=== PATIENT | male | born 1990 | race Caucasian/White ===

== ENCOUNTER 2019-02-16 13:03 | Emergency (ER) | payer BC ==
[~2019-02-16] VITALS: Ht 180.3 cm; Wt 104.3 kg
[2019-02-16] MEDS ORDERED: KETOROLAC 30 MG/ML VIAL IM ONE (14:00)
--- NOTE | 2019-02-16 14:34 | ED General ---
General Chief Complaint: Chest Wall Stated Complaint: CHEST PAIN Nursing Triage Note: PT AMBULATED TO ROOM 2 PT STATES STARTED LAST PM AROUND 1800, PT STATES HURTS LOWER L CHEST AND TO SIDE OF CHEST RATES 3/10. DENIES SOA OR NAUSEA Nursing Sepsis Screen: No Definite Risk History of Present Illness Date Seen by Provider: Feb 16, 2019 Time Seen by Provider: 13:10 Initial Comments 28-year-old male presents for left-sided rib pain. He is a [employer] and usual sits for approximately 4-6 hours without changing positions. He denies chest pain and reports that he can palpate the area of tenderness along the left lateral ribs. He thinks it started after sitting for prolonged period of time yesterday. He denies any shortness of breath. No history of injuries to the ribs. He has not taken any medicine for the symptoms. Timing/Duration: 24 Hours Severity: Mild Associated Systoms: Denies Symptoms Allergies and Home Medications Allergies Coded Allergies: No Known Drug Allergies (Unverified , 10/11/11) Home Medications No Active Prescriptions or Reported Meds Patient Home Medication List Home Medication List Reviewed: Yes Review of Systems Review of Systems Constitutional: no symptoms reported, see HPI Respiratory: see HPI, other (left lateral rib pain) All Other Systems Reviewed Negative Unless Noted: Yes Past Htjxvwi-Gymplm-Gytzua Hx Past Med/Social Hx: Reviewed Nursing Past Med/Soc Hx Patient Social History Alcohol Use: Rarely Uses Recreational Drug Use: No Smoking Status: Former Smoker Type Used: Cigarettes Recent Foreign Travel: No Contact w/Someone Who Travel: No Recent Infectious Disease Expo: No Recent Hopitalizations: No Immunizations Up To Date Tetanus Booster (TDap): Less than 5yrs Past Medical History Surgeries: No Respiratory: Yes (tobaccoism) Cardiac: No Neurological: No Reproductive Disorders: No Sexually Transmitted Disease: No HIV/AIDS: No Gastrointestinal: No Musculoskeletal: No Endocrine: No Cancer: No Psychosocial: No Integumentary: No Blood Disorders: No Adverse Reaction/Blood Tranf: No Family Medical History No Pertinent Family Hx Physical Exam Vital Signs Vital Signs - First Documented 02/16/19 13:07 Temp 98.4 Pulse 85 Resp 18 B/P (MAP) 137/88 (104) Pulse Ox 96 Capillary Refill : NONE Height, Weight, BMI Height: 5'11.00" Weight: 230lbs. oz. 104.030411yv; BMI Method:Stated General Appearance: No Apparent Distress, WD/WN Eyes: Bilateral Eye Normal Inspection, Bilateral Eye PERRL, Bilateral Eye EOMI HEENT: PERRL/EOMI, TMs Normal, Normal ENT Inspection, Pharynx Normal Neck: Full Range of Motion, Normal Inspection, Non Tender, Supple Respiratory: Lungs Clear, Normal Breath Sounds, Other (tenderness palpation along the left lower ribs) Cardiovascular: Regular Rate, Rhythm, No Murmur, Normal Peripheral Pulses Gastrointestinal: Normal Bowel Sounds, Non Tender, Soft Neurologic/Psychiatric: Alert, Oriented x3, No Motor/Sensory Deficits, Normal Mood/Affect Progress/Results/Core Measures Suspected Sepsis Recent Fever Within 48 Hours: No Infection Criteria Present: None New/Unexplained Altered Menta: No Sepsis Screen: No Definite Risk SIRS Temperature:98.4 Pulse: 85 Respiratory Rate: 18 Blood Pressure 137 /88 Mean: 104 Results/Orders My Orders Orders - ESAU BENITEZ Ekg Tracing (02/16/19 13:24) Ketorolac Injection (Toradol Injection) (02/16/19 14:00) Medications Given in ED Current Medications Medications Dose Ordered Sig/Jaja Route Start Time Stop Time Status Last Admin Dose Admin Ketorolac Tromethamine 60 mg ONCE ONCE IM 02/16/19 14:00 02/16/19 14:01 DC 02/16/19 13:57 60 MG Vital Signs/I&O 02/16/19 02/16/19 13:07 14:43 Temp 98.4 Pulse 85 83 Resp 18 18 B/P (MAP) 137/88 (104) 129/88 (102) Pulse Ox 96 98 Capillary Refill : NONE Blood Pressure Mean: 104 Progress Note : Time: 13:10 Progress Note Patient seen and evaluated. We'll obtain EKG and give Toradol 60 mg IM. 1400 patient reports improvement in his symptoms. Discharge instructions and return precautions reviewed. ECG Initial ECG Impression Date: Feb 16, 2019 Initial ECG Impression Time: 13:40 Initial ECG Rate: 65 Initial ECG Rhythm: Normal Sinus Initial ECG Intervals: Normal Initial ECG Intervals NC 156, QRSD 84, QT 356, QTC 371. [place] P 33, QRS 59, T 29. Initial ECG Impression: Normal Initial ECG Comparisson: No Previous ECG Available Comment Reviewed with Dr. Ridley, agreed with interpretation. Departure Impression Primary Impression: Costochondritis, acute Disposition: 01 HOME, SELF-CARE Condition: Improved Departure-Patient Inst. Decision time for Depature: 14:20 Referrals: NO,LOCAL PHYSICIAN (PCP/Family) Primary Care Physician Patient Instructions: Costochondritis (DC) Add. Discharge Instructions: Alternate heat and ice to ribs when painful. Take ibuprofen 600 mg every 8 hours. Establish care with a primary care provider. Stand up and stretch or change position when surinder, at least hourly. Return to emergency department for new, urgent health care needs. All discharge instructions reviewed with patient and/or family. Voiced understanding. Scripts No Active Prescriptions or Reported Meds Work/School Note: Local Medical Staff Listing ESAU BENITEZ Feb 16, 2019 14:34
[2019-02-16 14:43] VITALS: BP 129/88
== END 2019-02-16 14:43 | disposition home or self-care (01) ==
LOC: EDUNIT# 13:03 → ER 13:05
DX: M94.0 Chondrocostal junction syndrome [Tietze] (principal); Z87.891 Personal history of nicotine dependence
CPT/HCPCS: 93005; 96372

== ENCOUNTER 2019-04-10 16:53 | Emergency (ER) | payer BC ==
[~2019-04-10] VITALS: Ht 180 cm; Wt 100.0 kg
[2019-04-10] MEDS ORDERED: KETOROLAC 30 MG/ML VIAL IVP STA (17:04)
[2019-04-10 17:10] LABS: BASOPHILS % (AUTO) 0 % (0-10); EOSINOPHILS # (AUTO) 0.1 10^3/uL (0.0-0.3); EOSINOPHILS % (AUTO) 1 % (0-10); HEMATOCRIT 44 % (40-54); HEMOGLOBIN 14.8 G/DL (13.3-17.7); LYMPHOCYTES # (AUTO) 4.6 X 10^3 (1.0-4.0); LYMPHOCYTES % (AUTO) 47 % (12-44); MEAN CORPUSCULAR HEMOGLOBIN 28 PG (25-34); MEAN CORPUSCULAR HGB CONC 34 G/DL (32-36); MEAN CORPUSCULAR VOLUME 84 FL (80-99); MEAN PLATELET VOLUME 12.8 FL (7.4-10.4); MONOCYTES # (AUTO) 0.8 X 10^3 (0.0-1.0); MONOCYTES % (AUTO) 9 % (0-12); NEUTROPHILS # (AUTO) 4.2 X 10^3 (1.8-7.8); NEUTROPHILS % (AUTO) 43 % (42-75); PLATELET COUNT 190 10^3/uL (130-400); RED CELL DISTRIBUTION WIDTH 12.2 % (10.0-14.5); WHITE BLOOD COUNT 9.7 10^3/uL (4.3-11.0)
[2019-04-10] MEDS ORDERED: KETAMINE/NaCl 50 MG/5 ML SYRINGE (ED ONLY) IV ONE (17:15)
[2019-04-10 17:21] LABS: ALANINE AMINOTRANSFERASE 90 U/L (0-55); ALBUMIN 4.7 GM/DL (3.2-4.5); ALKALINE PHOSPHATASE 101 U/L (40-136); BILIRUBIN,TOTAL 0.8 MG/DL (0.1-1.0); BUN/CREATININE RATIO 14; CALCIUM 9.3 MG/DL (8.5-10.1); CARBON DIOXIDE 22 MMOL/L (21-32); CHLORIDE 104 MMOL/L (98-107); CREATININE SERUM 1.13 MG/DL (0.60-1.30); GFR ESTIMATED > 60; GLUCOSE 124 MG/DL (70-105); POTASSIUM 3.8 MMOL/L (3.6-5.0); SODIUM 141 MMOL/L (135-145); TOTAL PROTEIN 7.3 GM/DL (6.4-8.2)
[2019-04-10 17:30] LABS: BILIRUBIN,URINE NEGATIVE (NEGATIVE); CLARITY,URINE CLEAR; COLOR,URINE YELLOW; GLUCOSE, URINE (UA) NEGATIVE (NEGATIVE); KETONES,URINE 2+ (NEGATIVE); LEUKOCYTE ESTERASE ,URINE NEGATIVE (NEGATIVE); NITRITE,URINE NEGATIVE (NEGATIVE); PH,URINE 5 (5-9); PROTEIN,URINE NEGATIVE (NEGATIVE)
--- NOTE | 2019-04-10 17:34 | ED GI ---
General Chief Complaint: Abdominal/GI Problems Stated Complaint: ABD PAIN Nursing Triage Note: PT ARRIVED PER EMS PT CO OF R FLANK ABD PAIN STARTED AT 1610. PT HAS HAD FENTYL TOTAL OF 100MCG. BY EMS NS INFUSING PER IV IN L AC #20 BY EMS Sepsis Screen: No Definite Risk Source of Information: Patient Exam Limitations: No Limitations (BLADIMIR JERONIMO MD) History of Present Illness Date Seen by Provider: Apr 10, 2019 Time Seen by Provider: 17:00 Initial Comments Here with report of acute onset of right flank pain that started at about 1610. He was laying in bed at the time and it suddenly started. Never had anything like this before. EMS was called. They did give fentanyl 100 g IV and that did not really help. Reports the pain is cramping and persistent. Denies fevers, chills, vomiting or diarrhea. Timing/Duration: 1 Hour Severity/Quality: Moderate, Severe Location: Flank (right) Radiation: No Radiation Activities at Onset: None Modifying Factors: Improves With Analgesics Associated Symptoms: Back Pain; No Chest Pain, No Fever/Chills, No Nausea/Vomiting, No Shortness of Air, No Swelling/Mass in Abdomen, No Weakness (BLADIMIR JERONIMO MD) Allergies and Home Medications Allergies Coded Allergies: No Known Drug Allergies (Unverified , 10/11/11) Home Medications No Active Prescriptions or Reported Meds Patient Home Medication List Home Medication List Reviewed: Yes (BLADIMIR JERONIMO MD) Review of Systems Review of Systems Constitutional: see HPI; No chills, No fever EENTM: No Symptoms Reported Respiratory: Other (worse with deep breathing) Cardiovascular: No Symptoms Reported Gastrointestinal: See HPI, Abdominal Pain; Denies Diarrhea, Denies Nausea, Denies Vomiting Genitourinary: See HPI, Flank Pain; Denies Hematuria Musculoskeletal: no symptoms reported Skin: no symptoms reported (BLADIMIR JERONIMO MD) All Other Systems Reviewed Negative Unless Noted: Yes (BLADIMIR JERONIMO MD) Past Fiqbxvh-Czdgbu-Eigant Hx Past Med/Social Hx: Reviewed Nursing Past Med/Soc Hx (BLADIMIR JERONIMO MD) Patient Social History Alcohol Use: Rarely Uses Recreational Drug Use: No Smoking Status: Current Everyday Smoker Type Used: Cigars Recent Foreign Travel: No Contact w/Someone Who Travel: No Recent Infectious Disease Expo: No Recent Hopitalizations: No (BLADIMIR JERONIMO MD) Immunizations Up To Date Tetanus Booster (TDap): Less than 5yrs (BLADIMIR JERONIMO MD) Past Medical History Surgeries: No Respiratory: Yes (tobaccoism) Cardiac: No Neurological: No Reproductive Disorders: No Sexually Transmitted Disease: No HIV/AIDS: No Genitourinary: No Gastrointestinal: No Musculoskeletal: No Endocrine: Yes Diabetes, Non-Insulin dep HEENT: No Cancer: No Psychosocial: No Integumentary: No Blood Disorders: No Adverse Reaction/Blood Tranf: No (BLADIMIR JERONIMO MD) Family Medical History Reviewed Nursing Family Hx (BLADIMIR JERONIMO MD) No Pertinent Family Hx (BLADIMIR JERONIMO MD) Physical Exam Vital Signs Vital Signs - First Documented 04/10/19 16:55 Temp 36.7 Pulse 81 Resp 18 B/P (MAP) 153/95 (114) Pulse Ox 100 (CHETAN,OLGA Landon) Vital Signs Capillary Refill : Less Than 3 Seconds (BLADIMIR JERONIMO MD) Height/Weight/BMI Height: 5'11.00" Weight: 230lbs. oz. 104.133393im; 30.00 BMI Method:Stated General Appearance: WD/WN, no apparent distress HEENT: PERRL/EOMI, pharynx normal Neck: full range of motion, supple Respiratory: lungs clear, normal breath sounds Cardiovascular: regular rate, rhythm, no murmur Gastrointestinal: soft, tenderness (right flank) Extremities: non-tender, normal inspection Back: CVA tenderness (R); No CVA tenderness (L) Neurologic/Psychiatric: alert, oriented x 3 Skin: normal color, warm/dry (BLADIMIR JERONIMO MD) Progress/Results/Core Measures Results/Orders Lab Results Laboratory Tests Test 04/10/19 16:55 04/10/19 17:26 Range/Units White Blood Count 9.7 4.3-11.0 10^3/uL Red Blood Count 5.23 4.35-5.85 10^6/uL Hemoglobin 14.8 13.3-17.7 G/DL Hematocrit 44 40-54 % Mean Corpuscular Volume 84 80-99 FL Mean Corpuscular Hemoglobin 28 25-34 PG Mean Corpuscular Hemoglobin Concent 34 32-36 G/DL Red Cell Distribution Width 12.2 10.0-14.5 % Platelet Count 190 130-400 10^3/uL Mean Platelet Volume 12.8 H 7.4-10.4 FL Neutrophils (%) (Auto) 43 42-75 % Lymphocytes (%) (Auto) 47 H 12-44 % Monocytes (%) (Auto) 9 0-12 % Eosinophils (%) (Auto) 1 0-10 % Basophils (%) (Auto) 0 0-10 % Neutrophils # (Auto) 4.2 1.8-7.8 X 10^3 Lymphocytes # (Auto) 4.6 H 1.0-4.0 X 10^3 Monocytes # (Auto) 0.8 0.0-1.0 X 10^3 Eosinophils # (Auto) 0.1 0.0-0.3 10^3/uL Basophils # (Auto) 0.0 0.0-0.1 10^3/uL Sodium Level 141 135-145 MMOL/L Potassium Level 3.8 3.6-5.0 MMOL/L Chloride Level 104 98-107 MMOL/L Carbon Dioxide Level 22 21-32 MMOL/L Anion Gap 15 H 5-14 MMOL/L Blood Urea Nitrogen 16 7-18 MG/DL Creatinine 1.13 0.60-1.30 MG/DL Estimat Glomerular Filtration Rate > 60 BUN/Creatinine Ratio 14 Glucose Level 124 H 70-105 MG/DL Calcium Level 9.3 8.5-10.1 MG/DL Corrected Calcium 8.5-10.1 MG/DL Total Bilirubin 0.8 0.1-1.0 MG/DL Aspartate Amino Transf (AST/SGOT) 39 H 5-34 U/L Alanine Aminotransferase (ALT/SGPT) 90 H 0-55 U/L Alkaline Phosphatase 101 40-136 U/L Total Protein 7.3 6.4-8.2 GM/DL Albumin 4.7 H 3.2-4.5 GM/DL Urine Color YELLOW Urine Clarity CLEAR Urine pH 5 5-9 Urine Specific [place] 1.025 H 1.016-1.022 Urine Protein NEGATIVE NEGATIVE Urine Glucose (UA) NEGATIVE NEGATIVE Urine Ketones 2+ H NEGATIVE Urine Nitrite NEGATIVE NEGATIVE Urine Bilirubin NEGATIVE NEGATIVE Urine Urobilinogen NORMAL NORMAL MG/DL Urine Leukocyte Esterase NEGATIVE NEGATIVE Urine RBC (Auto) 5+ H NEGATIVE Urine RBC 50-100 H /HPF Urine WBC RARE /HPF Urine Squamous Epithelial Cells 2-5 /HPF Urine Crystals NONE /LPF Urine Bacteria FEW H /HPF Urine Casts NONE /LPF Urine Mucus SMALL H /LPF Urine Other /HPF Urine Culture Indicated NO (OLGA BENTON) My Orders Orders - OLGA BENTON Ed Iv/Invasive Line Start (04/10/19 18:18) Ns Iv 1000 Ml (Sodium Chloride 0.9%) (04/10/19 18:18) (OLGA BENTON) Medications Given in ED Current Medications Medications Dose Ordered Sig/Jaja Route Start Time Stop Time Status Last Admin Dose Admin Ketamine HCl 25 mg ONCE ONCE IV 04/10/19 17:15 04/10/19 17:16 DC 04/10/19 17:19 25 MG (OLGA BENTON) Vital Signs/I&O 04/10/19 16:55 Temp 36.7 Pulse 81 Resp 18 B/P (MAP) 153/95 (114) Pulse Ox 100 (OLGA BENTON) Blood Pressure Mean: 114 POS Progress Progress Note : Progress Note Seen and evaluated. IV by EMS. Normal saline 1 liter bolus initiated by EMS. Toradol 30 mg IV and ketamine 25 mg IV ordered. We will check labs and UA. Anticipate CT scan. (BLADIMIR JERONIMO MD) Progress Note : Time: 19:26 Progress Note Assume care of the patient at shift change. He states his pain was completely gone after the ketamine and Toradol. He had blood in his urine consistent with a kidney stone so previous ER provider had already ordered a noncontrasted CT scan of the abdomen and pelvis looking for kidney stones. CT was revealing of kidney stone so we will set him up with outpatient treatment. (OLGA BENTON) Diagnostic Imaging Diagonstic Imaging: CT Plain Films/CT/US/NM/MRI: abdomen, pelvis Comments NAME: KEYLA SNOW Celia MED REC#: [id number] PT STATUS: REG ER : 1990 PHYSICIAN: BLADIMIR JERONIMO MD ADMIT DATE: 04/10/19/ER Signed POSDate of Exam:04/10/19 CT ABD/PELVIS WO(KIDNEY STONE)\\ PROCEDURE: CT urinary tract, rule out kidney stone. TECHNIQUE: Multiple contiguous axial images were obtained through the abdomen and pelvis without the use of intravenous contrast. Auto Exposure Controls were utilized during the CT exam to meet ALARA standards for radiation dose reduction. INDICATION: Back pain and flank pain with hematuria. FINDINGS: The lung bases are clear. There are no renal calculi. There is mild hydronephrosis of the right kidney and ureter. The right ureter is dilated to the pelvis with a 3 mm stone at the level of the trigone. Bladder is decompressed. Left renal collecting system is normal. Bowel gas pattern appears normal throughout. There is hepatic steatosis. Gallbladder and bile ducts are normal. Pancreas and spleen are normal. The adrenal glands are normal. No free air or free fluid. No intra-abdominal adenopathy. No bony lesion. IMPRESSION: 1. Obstructive uropathy due to 3 mm stone in the distal right ureter near the bladder. Dictated by: Dictated on workstation # [id number] Dict: 04/10/191851 Trans: 04/10/191914 [id number] Interpreted by: JANUSZ CESAR MD Electronically signed by: JANUSZ CESAR MD 04/10/191914 Reviewed: Reviewed by Me (OLGA BENTON) Departure Impression Primary Impression: Ureteral calculus, right Disposition: 01 HOME, SELF-CARE Condition: Stable Departure-Patient Inst. Decision time for Depature: 19:27 (OLGA BENTON) Referrals: NO,LOCAL PHYSICIAN (PCP/Family) Primary Care Physician Patient Instructions: Kidney Stones (DC) Add. Discharge Instructions: Strain your urine using a strainer to see can catch the stone. Usually a day or 2 after the stone passes your symptoms should resolve completely. I be Profen 800 mg every 8 hours as needed for pain. Hydrocodone one to 2 tablets every 6 hours as needed to control your pain. Flomax 1 tablet daily until you pass the stone to help it pass faster. Drink lots of fluids. Ondansetron/Zofran 1 tablet under the tongue every 6 hours as needed for nausea or vomiting. Keflex one capsule twice a day for the next week to treat bladder infection. Follow-up with Dr. Grier, urology if you're unable to pass the stone on your own. All discharge instructions reviewed with patient and/or family. Voiced understanding. Scripts Tamsulosin HCl (Flomax) 0.4 Mg Cap 0.4 MG PO DAILY for 7 Days, #7 CAP 0 Refills Prov: OLGA BENTON 04/10/19 Cephalexin (Keflex) 500 Mg Capsule 500 MG PO BID for 7 Days, #14 CAP 0 Refills Prov: OLGA BENTON 04/10/19 Ondansetron (Ondansetron Odt) 4 Mg Tab.rapdis 4 MG PO Q6H PRN for NAUSEA/VOMITING, #8 TAB 0 Refills Prov: OLGA BENTON 04/10/19 Hydrocodone Bit/Acetaminophen (Hydrocodone/Acetaminophen 5/325mg Tablet) 1 Tab Tab 1-2 EACH PO Q6H PRN for PAIN-MODERATE MDD 10 for 3 Days, #14 TAB 0 Refills Prov: OLGA BENTON 04/10/19 Copy Copies To 1: LAURA GRIER MD, TIMOTHY D MD Apr 10, 2019 17:34 OLGA SPENCER Apr 10, 2019 19:31 POS
[2019-04-10 17:57] LABS: BACTERIA,URINE FEW /HPF; RBC,URINE 50-100 /HPF; WBC,URINE RARE /HPF
[2019-04-10] MEDS ORDERED: NS IV 1000 ML 1,000 ML IV SCH (18:18)
--- NOTE | 2019-04-10 18:56 | Diagnostic Imaging Report ---
PROCEDURE: CT urinary tract, rule out kidney stone. TECHNIQUE: Multiple contiguous axial images were obtained through the abdomen and pelvis without the use of intravenous contrast. Auto Exposure Controls were utilized during the CT exam to meet ALARA standards for radiation dose reduction. INDICATION: Back pain and flank pain with hematuria. FINDINGS: The lung bases are clear. There are no renal calculi. There is mild hydronephrosis of the right kidney and ureter. The right ureter is dilated to the pelvis with a 3 mm stone at the level of the trigone. Bladder is decompressed. Left renal collecting system is normal. Bowel gas pattern appears normal throughout. There is hepatic steatosis. Gallbladder and bile ducts are normal. Pancreas and spleen are normal. The adrenal glands are normal. No free air or free fluid. No intra-abdominal adenopathy. No bony lesion. IMPRESSION: 1. Obstructive uropathy due to 3 mm stone in the distal right ureter near the bladder. Dictated by: Dictated on workstation # [id number]
[2019-04-10] MEDS ORDERED: ACHD5005 PO (19:35)
[2019-04-10] MEDS ORDERED: CEPH-507 PO (19:35)
[2019-04-10] MEDS ORDERED: ONDA4TAB11 PO (19:35)
[2019-04-10] MEDS ORDERED: TAMS0.4C98 PO (19:35)
[2019-04-10 19:40] VITALS: BP 126/78
== END 2019-04-10 19:40 | disposition home or self-care (01) ==
LOC: EDUNIT# 16:53 → ER 16:55
DX: N13.2 Hydronephrosis with renal and ureteral calculous obstruction (principal); E11.9 Type 2 diabetes mellitus without complications; F17.290 Nicotine dependence, other tobacco product, uncomplicated
CPT/HCPCS: 36415; 74176; 80053; 81000; 85025